=== PATIENT | male | born 1960 | race Caucasian/White ===

== ENCOUNTER 2016-11-11 01:13 | Emergency (ER) | payer OTHER ==
[~2016-11-11] VITALS: Ht 185.4 cm; Wt 108.9 kg
[2016-11-11 01:23] VITALS: BP 182/82
--- NOTE | 2016-11-11 01:28 | NUR ---
TRIAGE: PT TO ER C/C R SHOULDER PAIN S/P INJURY LAST FRIDAY. 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 HIT SHOULDER ON A CHAIR. WAS SEEN AT [facility] [place], HAD XRAY DONE, WAS TOLD IT WAS A SPRAIN. HAS BEEN TAKING ADVIL, USING ICY HOT, ICING IT AND WAS ABOUT TO START USING HEAT THERAPY. HAS HAD IN A SLING WELL. PAIN LEVEL WHILE NOT MOVING IN SLING IS 1/10 BUT STATES THE PAIN DOES GO UP TO 8/10 WITH MOVEMENT/ACTIVITY. TONIGHT HAD TROUBLE SLEEPING.
--- NOTE | 2016-11-11 01:29 | NUR ---
Informed waiting has been performed.
[2016-11-11] MEDS ORDERED: LAMOTRIGINE100 M2 PO (01:30)
[2016-11-11] MEDS ORDERED: DULOXETINE HCL60 MG PO (01:31)
[2016-11-11] MEDS ORDERED: LOVASTATIN20 M1 PO (01:32)
--- NOTE | 2016-11-11 01:34 | NUR ---
PT TO ROOM 3, AWAITING PROVIDER EVALUATION
--- NOTE | 2016-11-11 01:40 | ED UPPER/LOWER EXTREMITY COMPL ---
History of Present Illness General Chief Complaint: Upper Extremity Problem Stated Complaint: "RT SHOULDER PAIN & SWELLING" Source: patient Exam Limitations: no limitations Vital Signs & Intake/Output Vital Signs & Intake/Output Vital Signs Date Time Temp Pulse Resp B/P B/P Pulse O2 O2 Flow FiO2 Mean Ox Delivery Rate 11/11 0123 98.8 73 20 182/82 97 Room Air Allergies Coded Allergies: No Known Allergies (11/11/16) Reconcile Medications Duloxetine HCl 60 MG CAPSULE.DR 1 CAP PO DAILY D (Reported) Lamotrigine 100 MG TABLET 3 TAB PO QPM BIPOLAR DEPRESSION (Reported) Lovastatin 20 MG TABLET 1 TAB PO DAILY CHOLESTEROL (Reported) Oxycodone HCl/Acetaminophen (Percocet 5-325 MG Tablet) 5 MG-325 MG TABLET 1 TAB PO 4XDP PRN PAIN EIGHT...[id number] Triage Note: TRIAGE: PT TO ER C/C R SHOULDER PAIN S/P INJURY LAST FRIDAY. 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 HIT SHOULDER ON A CHAIR. WAS SEEN AT [facility] IN [place], HAD XRAY DONE, WAS TOLD IT WAS A SPRAIN. HAS BEEN TAKING ADVIL, USING ICY HOT, ICING IT AND WAS ABOUT TO START USING HEAT THERAPY. HAS HAD IN A SLING WELL. PAIN LEVEL WHILE NOT MOVING IN SLING IS 1/10 BUT STATES THE PAIN DOES GO UP TO 8/10 WITH MOVEMENT/ACTIVITY. TONIGHT HAD TROUBLE SLEEPING. Triage Nurses Notes Reviewed? yes Onset: Abrupt Duration: day(s):, waxing and waning Timing: recent history Severity: mild, moderate Pain/Injury Location: Right: Shoulder. Method of Injury: "I tried to catch a bottle of orange juice." Modifying Factors: Improves With: rest. Worsens With: movement. Associated Symptoms: right shoulder strain HPI: 56 yo gentleman presents with right shoulder pain. He was previously diagnosed with a right shoulder sprain approximately one week ago after a fall. He had had a negative x-ray, by his report, at an urgent care center. Tonight at approximately 9 PM, he opened the refrigerator door. Of bottle of orange juice and fell. He reached out to catch the bottle. He felt pain in his right shoulder. He comes tonight with an inability to sleep, and with continued pain in his right shoulder. He states that it hurts to move his shoulder. He has no numbness tingling or weakness. He continues to use the sling that was given to him by the urgent care clinic. He notes that he is taking ibuprofen 2 tablets each day to help with the discomfort. This has had a mild to moderate effect. He does not wish to take more Percocet. He is otherwise well and has no other concerns. Past History Travel History Traveled to [place] past 21 day No Medical History Any Pertinent Medical History? 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 No Review of Systems Review of Systems Constitutional: Reports: no symptoms. EENTM: Reports: no symptoms. Respiratory: Reports: no symptoms. Cardiovascular: Reports: no symptoms. Gastrointestinal/Abdominal: Reports: no symptoms. Genitourinary: Reports: no symptoms. Musculoskeletal: Reports: no symptoms. Skin: Reports: no symptoms. Neurological/Psychological: Reports: no symptoms. Hematologic/Endocrine: Reports: no symptoms. Immunological: Reports: no symptoms. All Other Systems: Reviewed and Negative Physical Exam Physical Exam General Appearance: well developed/nourished, mild distress Head: atraumatic Eyes: Bilateral: normal appearance. Ears, Nose, Throat: normal pharynx, normal ENT inspection, hearing grossly normal Neck: normal inspection, supple Back: normal inspection Shoulder Right: diffuse tenderness to the right scapular musculature to palpation. Range of motion is normal but with discomfort elicited. Patient has pain elicited with rotator cuff maneuvers. Strength and light touch is intact in his elbow wrist and hand. 2+ distal pulses symmetrically in the upper cherries. Skin: intact, normal color, warm/dry Progress Differential Diagnosis: contusion, fracture, sprain, tendon injury Plan of Care: Discussed at great length with the patient. Patient placed in his sling. I referred the patient to follow up with orthopedics. I have written a prescription for Percocet and sent it to the pharmacy, 8 tablets, as a bridge to further evaluation. Departure Departure Disposition: HOME OR SELF CARE Condition: Stable Clinical Impression Primary Impression: Shoulder sprain Referrals: PRIOR LEONA KOHLI (PCP/Family) Departure Forms: Customer Survey General Discharge Information Prescriptions: Current Visit Scripts Oxycodone HCl/Acetaminophen (Percocet 5-325 MG Tablet) 1 TAB PO 4XDP PRN PAIN #8 TAB EIGHT...[id number]
--- NOTE | 2016-11-11 01:42 | NUR ---
PA STUDENT AT BEDSIDE FOR PT EVAL
[2016-11-11] MEDS ORDERED: PERCOCET 5-3251 EACH PO (02:09)
--- NOTE | 2016-11-11 02:14 | NUR ---
PT CLEARED FOR DISCHARGE BY . PT GIVEN RX FOR PERCOCET. PT VERBALIZED RX USE AND SIDE EFFECTS WELL DC UNDERSTANDING.
== END 2016-11-11 02:15 ==
LOC: ERH 01:13 → ERHI 02:55
DX: S43.401A Unspecified sprain of right shoulder joint, initial encounter (principal); W19.XXXA Unspecified fall, initial encounter; Y93.89 Activity, other specified; Y92.9 Unspecified place or not applicable

== ENCOUNTER 2016-11-15 05:16 | Emergency (ER) | payer OTHER ==
[~2016-11-15] VITALS: Ht 185.4 cm; Wt 108.9 kg
[~2016-11-15 05:16] MED LIST: DULOXETINE HCL60 MG PO; LAMOTRIGINE100 M2 PO; LOVASTATIN20 M1 PO; PERCOCET 5-3251 EACH PO
[2016-11-15 05:40] VITALS: BP 132/90
[2016-11-15] MEDS ORDERED: BACLOFEN10 M1 PO ×2 (06:13→06:30)
[2016-11-15] MEDS ORDERED: IBUPROFEN600 M1 PO ×2 (06:13→06:30)
--- NOTE | 2016-11-15 06:13 | ED NECK/BACK PAIN COMPLAINT ---
History of Present Illness General Chief Complaint: Lower Extremity Problems Stated Complaint: SHARP LOWER LEFT HIP PAIN Source: patient, old records Exam Limitations: no limitations Vital Signs & Intake/Output Vital Signs & Intake/Output Vital Signs Date Time Temp Pulse Resp B/P B/P Pulse O2 O2 Flow FiO2 Mean Ox Delivery Rate 11/15 0543 99 Room Air 11/15 0540 132/90 11/15 0529 97.2 79 18 127/94 99 Room Air Allergies Coded Allergies: aripiprazole (From [employer]) (MUSCLE SPASMS 11/15/16) Reconcile Medications Baclofen 10 MG TABLET 1 TAB PO TIDPRN PRN muscle spasm/strain Duloxetine HCl 60 MG CAPSULE.DR 1 CAP PO DAILY D (Reported) Ibuprofen 600 MG TABLET 1 TAB PO Q6PRN PRN pain with food Lamotrigine 100 MG TABLET 3 TAB PO QPM BIPOLAR DEPRESSION (Reported) Lovastatin 20 MG TABLET 1 TAB PO DAILY CHOLESTEROL (Reported) Oxycodone HCl/Acetaminophen (Percocet 5-325 MG Tablet) 5 MG-325 MG TABLET 1 TAB PO 4XDP PRN PAIN EIGHT...[id number] Triage Note: PT TO EDC/O LEFTLOW BACK/FLANK PAIN, STARTED YESTERDAY, "WAS SO BAD THIS MORNING, I COULD HARDLY GET OUT OF BED" STATES "FEELS BETTER NOW THAT I'VE WALKED AROUND A BIT" STATES INJURED MID BACK IN JULY, WAS IN CENTER, "NOT ON THE SIDE" WENT TO PT YESTERDAY FOR RT SHOULDER/FOREARM INJURY. DRY HACKING UNPRODUCTIVE COUGH SINCE THE END OF SEPTEMBER. SAW PCP ABOUT COUGH ON APPROX OCTOBER 28. TOOK PATIENT OFF LISINIPRIL THEN. IS NOT CURRENTLY ON ANY BP MEDS. BP 132/90 Triage Nurses Notes Reviewed? yes Onset: Last week Duration: day(s):, constant, continues in ED Timing: recent history Quality/Severity: moderate, severe, sharpness Location: lumbar spine, paraspinous muscles Radiation: none Context: fall/near fall Method of Injury: fall Loss of Consciousness: no loss of consciousness Modifying Factors: cold therapy, immobilization, movement, rest Associated Symptoms: muscle spasm HPI: One week prior to admission patient fell injuring right shoulder and low back. He is in physical therapy for his shoulder. He is had increasing pain in his left lower back described as sharp moderate to severe worse with turning bending and lifting nonradiating constant. Denies fever chills nausea vomiting diarrhea abdominal pain chest pain shortness breath headache dysuria rash bleeding change in motor sensory function change in bowel bladder habit. Past History Travel History Traveled to [place] past 21 day No Medical History Any Pertinent Medical History? 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 No Review of Systems Review of Systems Constitutional: Reports: no symptoms. Eyes: Reports: no symptoms. Ears, Nose, Throat, Mouth: Reports: no symptoms. Respiratory: Reports: no symptoms. Cardiovascular: Reports: no symptoms. Gastrointestinal/Abdominal: Reports: no symptoms. Musculoskeletal: Reports: see HPI, back pain. Skin: Reports: no symptoms. Neurological/Psychological: Reports: no symptoms. All Other Systems: Reviewed and Negative Physical Exam Physical Exam General Appearance: well developed/nourished, alert, awake, anxious, mild distress Head: atraumatic Eyes: Bilateral: PERRL, EOMI. Ears, Nose, Throat, Mouth: hearing grossly normal Neck: normal inspection, supple, full range of motion, normal alignment Respiratory: normal breath sounds, chest non-tender, no respiratory distress, quiet respiration, lungs clear Cardiovascular: regular rate/rhythm, normal peripheral pulses, norml femoral pulses equa Peripheral Pulses: 4+ carotid (R), 4+ carotid (L) Gastrointestinal: normal bowel sounds, soft, non-tender, no organomegaly Back: normal inspection, normal range of motion, muscle spasm, no vertebral tenderness Extremities: normal range of motion Straight Leg Raising: Right: Negative. Left: Negative. Sensory: Medial Le: L4R, L4L. Top of Foot: 2: L5R, L5L. Sole of Foot: 2: SIR, SHARRON. Motor: Deficit L4 Right: No Deficit L4 Left: No Deficit L5 Right: No Deficit L5 Left: No Deficit S1 Right: No Deficit S1 Right: No DTR: Deficit L4 Left: No Deficit L4 Right: No Deficit S1 Left: No Deficit S1 Right: No Patellar: 3: L4 Right, L4 Left. 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 Skin: intact, normal color, warm/dry Progress Differential Diagnosis: herniated disc, myofascial strain, T/L spine injury Plan of Care: Current Medications Sig/Veto Start time Last Medication Dose Stop Time Status Admin Cyclobenzaprine HCl 10 MG ONCE ONE 11/15 614 UNVr (Flexeril 10MG Tab) 11/16 615 Ibuprofen 600 MG ONCE ONE 11/15 614 UNVr 11/15 (Motrin) 11/15 Departure Departure Time of Disposition: 611 Disposition: HOME OR SELF CARE Condition: Stable Clinical Impression Primary Impression: Acute lumbar myofascial strain Referrals: [facility] LEONA KOHLI (PCP/Family) Departure Forms: Customer Survey General Discharge Information Prescriptions: Current Visit Scripts Baclofen 1 TAB PO TIDPRN PRN muscle spasm/strain #30 TAB Ibuprofen 1 TAB PO Q6PRN PRN pain #50 TAB with food
== END 2016-11-15 06:12 ==
LOC: ERH 05:16
DX: S39.012A Strain of muscle, fascia and tendon of lower back, initial encounter (principal); W19.XXXA Unspecified fall, initial encounter; Y92.9 Unspecified place or not applicable; Y93.9 Activity, unspecified